=== PATIENT | female | born 1995 | race Caucasian/White ===

== ENCOUNTER 2017-06-12 18:42 | Inpatient (IN) | payer OTHER, MEDICAID ==
[~2017-06-12] VITALS: Ht 154.9 cm; Wt 55.5 kg
--- NOTE | ~2017-06-12 | PROC ---
[address] [address] PROCEDURE REPORT Name: SAILAJA FREITAS Room: [address] IN .R.#: [id number] Admission: 06/12/17 Attend Phys: Jean Paul Alonso MD Discharge: Date of : 89 Report #: [id number] THIS REPORT FOR: //name// For GI report, please see the Provation report in Perceptive 7 content. By: 1441Medical Records Staff FERMÍN /LETTY
[2017-06-12 19:00] VITALS: BP 110/55
[2017-06-12] MEDS ORDERED: PROTONIX40 M1 PO (19:03)
[2017-06-12] MEDS ORDERED: CELEXA40 MG PO (19:03)
[2017-06-12] MEDS ORDERED: TRI FEMYNOR 281 EACH PO (19:04)
[2017-06-12] MEDS ORDERED: BENADRYL25 MG PO (19:04)
[2017-06-12 19:52] LABS: ABSOLUTE LYMPHOCYTES 2.1 thou/uL (0.8-5.3); ABSOLUTE MONOCYTES 0.7 thou/uL (0.0-1.2); ABSOLUTE NEUTROPHILS 5.2 thou/uL (1.6-8.1); BASOPHILS 0.4 %; EOSINOPHILS 0.2 %; HEMATOCRIT 37.5 % (37.0-47.0); HEMOGLOBIN 12.9 gm/dL (12.0-15.0); LYMPHOCYTES 25.8 %; MCH 30.6 pg (26.0-34.0); MCHC 34.5 g/dL (28.0-37.0); MCV 88.6 fL (80.0-100.0); MONOCYTES 8.9 %; NUCLEATED RBCS 0 /100WBC; PLATELET COUNT* 138 thou/uL (150-400); POLYS 64.7 %; RBC 4.23 mil/uL (4.20-5.00); RDW-CV 12.7 % (10.5-14.5)
[2017-06-12 20:07] LABS: ANION GAP 8 mmol/L (7-16); BUN 11 mg/dL (7-18); CALCIUM 8.9 mg/dL (8.5-10.1); CHLORIDE 104 mmol/L (98-107); CO2 28 mmol/L (21-32); CREATININE 0.6 mg/dL (0.6-1.3); GLUCOSE 93 mg/dL (70-99); POTASSIUM 3.8 mmol/L (3.5-5.1); SODIUM 140 mmol/L (136-145)
[2017-06-12 20:10] LABS: URINE BILIRUBIN NEGATIVE (Negative); URINE BLOOD NEGATIVE (Negative); URINE CLARITY CLEAR; URINE COLOR YELLOW; URINE GLUCOSE-RANDOM NEGATIVE (Negative); URINE KETONES NEGATIVE (Negative); URINE LEUKOCYTES-REFLEX NEGATIVE (Negative); URINE NITRITE-REFLEX NEGATIVE (Negative); URINE PROTEIN NEGATIVE (Negative); URINE SPECIFIC GRAVITY <= 1.005 (1.005-1.030); URINE UROBILINOGEN 0.2 E.U./dl (0.2-1.0)
[2017-06-12 20:12] LABS: ALBUMIN 3.7 g/dL (3.4-5.0); ALKALINE PHOSPHATASE 115 U/L (46-116); SGOT 490 U/L (15-37); SGPT 494 U/L (30-65); TOTAL BILIRUBIN 0.4 mg/dL (<0.1-1.0); TOTAL PROTEIN 7.1 g/dL (6.4-8.2)
[2017-06-12 20:33] LABS: LIPASE > 30000 U/L (73-393)
[2017-06-12 23:24] VITALS: BP 98/58
[2017-06-12 23:35] VITALS: BP 94/52
[2017-06-13 09:56] VITALS: BP 95/54
[2017-06-13 11:14] LABS: AMP/METHAMP Negative (Negative); BARBITURATES Negative (Negative); BENZODIAZEPINES Negative (Negative); COCAINE Negative (Negative); METHADONE Negative (Negative); OPIATES Negative (Negative); PCP Negative (Negative); THC Negative (Negative)
[2017-06-13 15:50] LABS: ABSOLUTE MONOCYTES 0.4 thou/uL (0.0-1.2); ABSOLUTE NEUTROPHILS 3.4 thou/uL (1.6-8.1); BASOPHILS 0.6 %; EOSINOPHILS 0.8 %; HEMATOCRIT 38.5 % (37.0-47.0); LYMPHOCYTES 34.6 %; MCH 30.2 pg (26.0-34.0); MCHC 33.7 g/dL (28.0-37.0); MCV 89.7 fL (80.0-100.0); NUCLEATED RBCS 0 /100WBC; PLATELET COUNT* 131 thou/uL (150-400); RBC 4.29 mil/uL (4.20-5.00); RDW-CV 12.7 % (10.5-14.5); WBC 5.9 thou/uL (4.0-11.0)
[2017-06-13 16:11] VITALS: BP 127/73
[2017-06-13 16:28] LABS: PROTIME 10.2 Seconds (9.20-11.50)
[2017-06-13 20:00] VITALS: BP 101/61
[2017-06-14 04:05] LABS: ABSOLUTE EOSINOPHILS 0.1 thou/uL (0.0-0.7); ABSOLUTE LYMPHOCYTES 2.1 thou/uL (0.8-5.3); ABSOLUTE MONOCYTES 0.4 thou/uL (0.0-1.2); ABSOLUTE NEUTROPHILS 2.2 thou/uL (1.6-8.1); BASOPHILS 0.3 %; EOSINOPHILS 1.5 %; HEMATOCRIT 33.2 % (37.0-47.0); HEMOGLOBIN 11.3 gm/dL (12.0-15.0); LYMPHOCYTES 44.4 %; MCH 30.8 pg (26.0-34.0); MCHC 34.2 g/dL (28.0-37.0); MCV 90.1 fL (80.0-100.0); MONOCYTES 8.5 %; MPV 9.1 fl. (7.2-11.1); NUCLEATED RBCS 0 /100WBC; PLATELET COUNT* 104 thou/uL (150-400); POLYS 45.3 %; RBC 3.69 mil/uL (4.20-5.00); RDW-CV 12.8 % (10.5-14.5); WBC 4.8 thou/uL (4.0-11.0)
[2017-06-14 04:34] LABS: CALCIUM 7.9 mg/dL (8.5-10.1); CREATININE 0.7 mg/dL (0.6-1.3); POTASSIUM 3.9 mmol/L (3.5-5.1); TOTAL BILIRUBIN 0.3 mg/dL (<0.1-1.0); TOTAL PROTEIN 5.5 g/dL (6.4-8.2)
[2017-06-14 09:51] VITALS: BP 102/60
[2017-06-14 16:30] VITALS: BP 102/60
[2017-06-14 21:10] VITALS: BP 120/70
[2017-06-15] VITALS (7 sets, daily range): BP systolic 102–117; BP diastolic 56–73
[2017-06-15 03:58] LABS: HEMATOCRIT 38.3 % (37.0-47.0); HEMOGLOBIN 12.9 gm/dL (12.0-15.0); MCH 30.2 pg (26.0-34.0); MCHC 33.6 g/dL (28.0-37.0); MPV 8.9 fl. (7.2-11.1); NUCLEATED RBCS 0 /100WBC; PLATELET COUNT* 142 thou/uL (150-400); RBC 4.25 mil/uL (4.20-5.00); RDW-CV 12.4 % (10.5-14.5); WBC 10.5 thou/uL (4.0-11.0)
[2017-06-15 04:26] LABS: ALBUMIN 3.6 g/dL (3.4-5.0); CALCIUM 8.4 mg/dL (8.5-10.1); CREATININE 0.7 mg/dL (0.6-1.3); POTASSIUM 4.5 mmol/L (3.5-5.1); TOTAL BILIRUBIN 0.5 mg/dL (<0.1-1.0)
[2017-06-15 06:12] LABS: ABSOLUTE LYMPHOCYTES 1.3 thou/uL (0.8-5.3); ABSOLUTE MONOCYTES 0.2 thou/uL (0.0-1.2); PLATELET ESTIMATE DECREASED
[2017-06-15 06:13] LABS: ANISOCYTOSIS Occasional
[2017-06-16 03:30] VITALS: BP 102/59
[2017-06-16 04:41] LABS: HEMATOCRIT 30.9 % (37.0-47.0); MCH 30.7 pg (26.0-34.0); MCHC 34.3 g/dL (28.0-37.0); MCV 89.5 fL (80.0-100.0); MPV 9.4 fl. (7.2-11.1); RBC 3.45 mil/uL (4.20-5.00); RDW-CV 12.4 % (10.5-14.5); WBC 5.8 thou/uL (4.0-11.0)
[2017-06-16 04:45] LABS: HEMOGLOBIN 10.6 gm/dL (12.0-15.0)
[2017-06-16 05:05] LABS: CALCIUM 8.1 mg/dL (8.5-10.1); CREATININE 0.6 mg/dL (0.6-1.3); POTASSIUM 3.8 mmol/L (3.5-5.1); TOTAL BILIRUBIN 0.3 mg/dL (<0.1-1.0); TOTAL PROTEIN 5.7 g/dL (6.4-8.2)
[2017-06-16 07:45] VITALS: BP 101/61; BP 97/63
[2017-06-16 15:30] VITALS: BP 101/61
[2017-06-16 21:05] VITALS: BP 106/62
[2017-06-17 00:33] VITALS: BP 97/58
[2017-06-17 04:34] LABS: HEMATOCRIT 32.5 % (37.0-47.0); HEMOGLOBIN 10.9 gm/dL (12.0-15.0); MCH 30.4 pg (26.0-34.0); MCHC 33.5 g/dL (28.0-37.0); MCV 90.6 fL (80.0-100.0); MPV 9.6 fl. (7.2-11.1); RBC 3.58 mil/uL (4.20-5.00); RDW-CV 12.7 % (10.5-14.5)
[2017-06-17 04:57] LABS: ALBUMIN 2.8 g/dL (3.4-5.0); CALCIUM 8.1 mg/dL (8.5-10.1); CREATININE 0.7 mg/dL (0.6-1.3); MAGNESIUM 1.9 mg/dL (1.8-2.4); POTASSIUM 3.9 mmol/L (3.5-5.1); TOTAL BILIRUBIN 0.1 mg/dL (<0.1-1.0); TOTAL PROTEIN 5.4 g/dL (6.4-8.2)
[2017-06-17 08:00] VITALS: BP 106/66
[2017-06-17] MEDS ORDERED: PERCOCET PO (09:42)
[2017-06-17 09:51] VITALS: BP 106/66
[2017-06-17 15:37] VITALS: BP 106/66
--- NOTE | 2017-07-01 15:05 | CON ---
[address] [address] CONSULTATION Name: ROBERT FREITASJARET Carreno Room: [address] IN M.R.#: [id number] Admission: 06/12/17 Attend Phys: Jean Paul Alonso MD Discharge: 06/17/17 Date of : 94 Report #: [id number] THIS REPORT FOR: //name// CC: Dr. Brandyn Srivastava in [place], [place] Jean Paul Palmer DICTATED BY: Subha Palmer [facility] DATE OF SERVICE: 06/13/2017 Please note at the time of this dictation, the patient was seen and physically diagnosed by myself. REASON FOR CONSULTATION: Abdominal pain and nausea. HISTORY OF PRESENT ILLNESS: This is a 21-year-old female who presented to the Emergency Room after being instructed by myself regarding her abdominal pain and nausea. The patient was recently seen in our office the end of May for her hepatitis C for treatment. At that time, the patient was seen, she did no mention of any abdominal pain that she was having and was not having any abdominal pain at the time that she was seen. Apparently, she has been having this abdominal pain and nausea since 12/2016 and then over the last 2 months, it became apparently worse and that is when she sought out treatment and found out that she had hepatitis C. She felt that all of her pain was related to her hepatitis C and she was instructed that has not had any bearing. She had an ultrasound done at [place] that was done on 05/20/2017 that showed cholelithiasis without any evidence of acute cholecystitis and no ductal dilatation was noted at that time. After her office visit and further labs were drawn to see what genotype and viral load she had, she began having acute abdominal discomfort prompting her to go to the [address] in [place] where she underwent a CT scan that showed no gallstones and everything was in normal limits with no ductal dilatation and her pancreas was also noted to be normal at that time. However, at that time, her blood work revealed total bilirubin to be 1.7, alkaline phosphatase was 118, ALT was 548 and AST was 385, which was noted earlier prior to her being seen in our office. Her labs were fairly normal except for her ALT was 93 with the rest of her labs being normal for her liver. The patient then, based off of those findings, was instructed that she needed to have an MRCP done, which she had done at [facility]. That test was done on 06/07/2017 that showed no evidence of bile duct dilatation or choledocholithiasis and that the MRCP was unremarkable. It mentioned that the pancreatic duct was normal in thickness and diameter and that the pancreas was normal in size and configuration at that time. After talking with the patient last evening and she was wanting pain medication, she agreed to come to the hospital to be admitted to get this abdominal [place] [address] CONSULTATION Name: SAILAJA FREITAS Room: [address] IN M.R.#: [id number] Admission: 06/12/17 Attend Phys: Jean Paul Alonso MD Discharge: 06/17/17 Date of : 94 Report #: [id number] ALLERGIES: No known drug allergies. MEDICATIONS: From home include control pills, Celexa, Protonix, Benadryl. PAST MEDICAL HISTORY: Hepatitis C. She is a genotype 3a. PAST SURGICAL HISTORY: . FAMILY HISTORY: Noncontributory. SOCIAL HISTORY: Does drink alcohol socially on occasion. Denies any tobacco or illegal drug use at this time. REVIEW OF SYSTEMS: Twelve-point review of systems is essentially negative except what is mentioned in the HPI. PHYSICAL EXAMINATION: VITAL SIGNS: 36.8, pulse 61, respirations 12, blood pressure 95/54. HEART: Regular rate and rhythm. LUNGS: Clear. ABDOMEN: Soft, positive bowel sounds in all 4 quadrants with tenderness noted in the mid epigastric area. LABORATORY DATA: Hemoglobin is 12.9, hematocrit 37.5, white count is 8, and platelets are 138. Sodium 140, potassium 3.8, chloride 104, CO2 28, BUN is 11, creatinine 0.6, GFR is 125 and glucose is 93. Total bilirubin is 0.4, alkaline phosphatase 115, ALT 494, AST is 490, lipase shows to be greater than 30,000. CT of the abdomen and pelvis shows 1-2 calculi noted in the gallbladder with cholelithiasis noted, mild splenomegaly, but no pancreatic stranding or inflammation noted. Urine drug screen was also negative. IMPRESSION: 1. Abdominal pain. 2. Elevated LFTs. 3. Elevated lipase. 4. Thrombocytopenia. 5. Hepatitis C, newly diagnosed. PLAN: 1. We will await hepatobiliary scan. 2. Normal saline 250 mL an hour. 3. CMP and lipase in the a.m. 4. Diet as tolerated after testing has been performed. 5. Discussed case with surgery who is on board with ultrasound, CT and MRCP results done outside the facility placed on the front [place] [address] CONSULTATION Name: SAILAJA FREITAS Room: [address] IN [facility]#: [id number] Admission: 06/12/17 Attend Phys: Jean Paul Alnoso MD Discharge: 06/17/17 Date of : 94 Report #: [id number] recommendations to occur once the hepatobiliary scan has been evaluated. Thank you for allowing us to participate in this patient's care. Please do not hesitate to call with any questions in regard to this consult. <ELECTRONICALLY SIGNED> By: Ronlado Vazquez MD 07/01/17 1505 1219 1943Ronaldo Vazquez MD /nt
--- NOTE | 2017-07-01 15:05 | CON ---
[address] [address] CONSULTATION Name: SAILAJA FREITAS Room: [address] IN M.R.#: [id number] Admission: 06/12/17 Attend Phys: Jean Paul Alonso MD Discharge: 06/17/17 Date of : 94 Report #: [id number] THIS REPORT FOR: //name// CC: Jean Paul Palmer DATE OF SERVICE: 06/13/2017 ADDENDUM TO CONSULTATION CONSULTATION NUMBER: [id number]. I have personally seen and examined the patient and reviewed labs and imaging. The patient with elevated liver enzymes and lipase of 30,000; who presents with abdominal pain. She had a CT of abdomen and pelvis, which reveals mild splenomegaly and cholelithiasis. She has had a HIDA scan, which is pending results. Her elevation of bilirubin and transaminases in the setting of pancreatitis suggest gallstone pancreatitis. We will hydrate the patient and get over her pancreatitis. She would need a laparoscopic cholecystectomy with IOC. <ELECTRONICALLY SIGNED> By: Ronaldo Vazquez MD 07/01/17 1505 1700 2105Ronaldo Vazquez MD /nt
--- NOTE | 2017-07-02 10:58 | OP ---
[address] [address] OPERATIVE REPORT Name: SAILAJA FREITAS Room: [address] IN M.R.#: [id number] Admission: 06/12/17 Attend Phys: Jean Paul Alonso MD Discharge: 06/17/17 Date of : 94 Report #: [id number] THIS REPORT FOR: //name// CC: Jean Paul Elizabethb DICTATED BY: Chava Cifuentes DO DATE OF SERVICE: 06/14/2017 PREOPERATIVE DIAGNOSIS: Cholecystitis. POSTOPERATIVE DIAGNOSES: Cholecystitis and choledocholithiasis. SURGEON: Taco Benites DO ASSISTANTS: Chava Cifuentes, PGY-2 and Lauren Lacey, PGY-5 and Steph Thorne, MS3. OPERATION PERFORMED: Laparoscopic cholecystectomy with intraoperative cholangiogram and liver biopsy. ANESTHESIA: GET. ESTIMATED BLOOD LOSS: 30 mL. SPECIMEN REMOVED: Gallbladder and liver biopsy x 4. COMPLICATIONS: None. INDICATIONS: The patient is a 21-year-old female that presented as a direct admission from for acute right upper quadrant pain and epigastric pain. On presentation, the patient had elevation of lipase greater than 30,000 and elevated AST and ALT. The patient had recent history of diagnosis of hepatitis C. CT performed showed a contracted gallbladder with 1-2 small calculi in the fundus without any ductal dilatation. HIDA was performed which showed nonvisualization of the gallbladder and opacification of the common and cystic ducts. These findings were discussed with the patient and she was consented for laparoscopic cholecystectomy with intraoperative cholangiogram as well as a liver biopsy. DESCRIPTION OF PROCEDURE: After informed proper consent was obtained, the patient was brought to the operating room and placed on the table in supine position. SCDs were applied. General anesthesia was administered without difficulty. The patient was prepped and draped in the usual sterile fashion. A surgical pause was held to confirm correct patient and procedure. [address] [place] [address] OPERATIVE REPORT Name: SAILAJA FREITAS Room: [address] IN [facility]#: [id number] Admission: 06/12/17 Attend Phys: Jean Paul Alonso MD Discharge: 06/17/17 Date of : 94 Report #: [id number] vertical incision was made inferior to the umbilicus with a #15 blade. Dissection was carried down to the fascia using Bovie electrocautery. The fascia was grasped with 2 Kochers and elevated and opened with Bovie electrocautery. A Robyn clamp was used to enter the peritoneum bluntly. A finger was introduced into the peritoneum to sweep and check for any adhesions. At this time, 0 [address] was used to place a iqqfql-xm-tairw on the superior and inferior portions of the fascial incision. The 5 mm Cyndi trocar was introduced and the balloon inflated. Insufflation was established. After deflation, the camera was introduced and exploration of the abdomen was undertaken. Additional 10 mm port was placed in the epigastrium and two 5 mm ports placed in the right upper quadrant under direct visualization. The gallbladder was visualized and elevated with a blunt grasper. The peritoneum overlying the Christine's pouch and distal cystic duct were dissected free using Bovie electrocautery. The cystic duct was isolated using a combination of Bovie electrocautery and blunt dissection with a Maryland dissector. A window was made behind the cystic duct. The cystic artery was also isolated in this fashion and clipped. A clip was placed at the distal aspect of the cystic duct and using laparoscopic scissors, the cystic duct was opened. A 14-gauge angiocatheter was introduced through the abdomen in the right upper quadrant inferior to the costal margin and through this catheter the cholangiogram catheter was introduced into the abdomen. The [place] dissector was used to guide this into the incised cystic duct. Once the catheter was in the cystic duct, it was secured with a single clip. At this time, a laparoscopic cholangiogram was performed. A solitary stone was noted in the distal common bile duct. Saline was flushed repeatedly to attempt to dislodge the stone. Glucagon was administered to relax the sphincter of Oddi and again multiple attempts at flushing the stone out were undertaken unsuccessfully. The fluoroscopic images were reviewed at this point and the presence of a stone confirmed. The clip was removed from the catheter and the catheter removed. Three additional clips were placed on the cystic duct and the incision was completed to remove the cystic duct. The artery was also cut at this time. Bovie electrocautery was then used to dissect the gallbladder from the liver bed. Prior to complete removal of the gallbladder, the liver bed was inspected for hemostasis and achieved using Bovie electrocautery. The clips were noted to be in adequate position with no leak of bile or blood noted. The suction opticianry teacher was used to suction any blood and bile and irrigated until clean. The gallbladder was placed in a laparoscopic EndoCatch bag placed out of the field. At this point, liver biopsy tool was introduced through the previous Angiocath incision for individual core biopsies were obtained. Bovie electrocautery was used to achieve hemostasis at each of these 4 biopsy sites. The right upper quadrant was again irrigated and suctioned. All laparoscopic ports were removed under direct visualization without any bleeding noted. The abdomen was allowed to desufflate. The gallbladder was removed via the EndoCatch bag through the umbilical port. The previous fascial incisions were elevated and an additional 2 xwppab-sj-iidnd stitches were placed in the fascia in a gvatqc-qy-tfolx fashion with 0 Vicryl. A 15-English RIK[place] [address] OPERATIVE REPORT Name: SAILAJA FREITAS Room: [address]#: [id number] Admission: 06/12/17 Attend Phys: Jean Paul Alonso MD Discharge: 06/17/17 Date of : 94 Report #: [id number] into the right upper quadrant and secured with a 2-0 nylon. All incisions were closed with 4-0 Monocryl. The wounds were cleansed and dressed with Mastisol, Steri-Strips, and Tegaderm. Pressure dressings were placed over top. All surgical counts were correct at the close of the case. The patient tolerated the procedure well and was transferred to the PACU in stable condition. <ELECTRONICALLY SIGNED> By: Taco Benites DO 07/02/17 1058 22 [id number] Benites DO /nt
--- NOTE | 2017-07-05 16:01 | S ---
[place] [address] SURGICAL PATH RPT PROCEDURE Name: KITTY FREITAS Room: [address] IN M.R.#: [id number] Admission: 06/12/17 Date of : 89 Discharge: 06/17/17 Report #: [id number] Path Case #: [id number] PATHOLOGY REPORT COLLECTION DATE: 06/14/2017 RECEIVED DATE: 06/17/2017 SUBMITTING PHYS: Dr. Taco Benites OTHER PHYS: Dr. Jean Paul Palmer SWORD SWALLOWER ADDENDUM REPORT (Order Date: 07/05/2017 15:33) ADDENDUM COMMENT: The specimen stain trichrome and elastic does not reveal any evidence of cirrhosis. The special stain PAS and PAS-D do not reveal any evidence of inclusions. The special stain iron is also negative. This addendum is for evaluation of special stains. (SHA:; 07/05/2017) Professional services performed under supervision of [facility] Consumer Marketing Analyst at [address] [place] [address]. Technical services performed by [facility] under supervision of a [facility] Consumer Marketing Analyst at [address] [place] [address], [place] [address]. ELECTRONICALLY SIGNED BY: Wyatt Ernandez M.D. DATE/TIME:07/05/2017 15:55 ADDENDUM REPORT (Order Date: 06/21/2017 00:00) ADDENDUM COMMENT: Please see next page for scanned image of report submitted by [facility]. (KATERINA:mirna; d/t: 06/25/2017) ELECTRONICALLY SIGNED BY: Wyatt Ernandez M.D. DATE/TIME:06/26/2017 14:12 SPECIMEN(S) RECEIVED: A.Gallbladder with contents B.Liver biopsy * * * * * * * * * * * * FINAL DIAGNOSIS: A. Gallbladder "gallbladder and contents, cholecystectomy": - Chronic cholecystitis with cholelithiasis. B. Liver "liver biopsy": - The liver biopsy will be sent to the [facility] and once those results are available an additional report will follow. COMMENT: [place] [address] SURGICAL PATH RPT PROCEDURE Name: KITTY FREITAS Room: [address] IN [facility]#: [id number] Admission: 06/12/17 Date of : 94 Discharge: 06/17/17 Report #: [id number] Path Case #: [id number] A liver panel was also ordered. (KATERINA:addy; 06/18/2017) PATHOLOGIST: Wyatt Ernandez M.D. REPORT ELECTRONICALLY SIGNED BY: Wyatt Ernandez M.D. DATE/TIME: 06/18/2017 15:15 * * * * * * * * * * * * GROSS PATHOLOGY: A. Received in formalin labeled "Kitty Freitas, gallbladder with contents" and consists of an emerald green and glistening intact 9.5 cm in length by 2.7 cm in diameter gallbladder. The margin is inked. The lumen contains approximately 10 ML's of thick green bile and a few nodular yellow calculi ranging in size from 0.1 cm-0.3 cm, and aggregating to 0.5 x 0.4 x 0.3 cm. The wall averages 0.2 cm thick. The mucosa is velvety and green. Change Coordinator sections are submitted as a 1. B. Received in formalin labeled "Roll, Kitty, liver biopsy" and consists of 6 blanca tissue cores ranging in length from 0.5 cm-1.9 cm and each with uniform diameter of less than 0.1 cm. They are entirely submitted as B1. (LISSETH; 06/17/2017) CLINICAL HISTORY: Cholecystitis INITIAL CPT CODE(S): A; 15635 B; 50383, 68356, 76017, 05666, [address]5627, 07898 Professional services performed by [facility] at [facility] , [place] [address]. Technical services performed by [facility] at [address] [place] [address], [address], [place] [address]. [facility] [address] [place] [address] PHONE: [phone] DIRECTOR: Vitor Byrd M.D. * * * END OF REPORT * * *
== END 2017-06-17 14:00 | disposition home or self-care (01) | DRG 417 ==
LOC: M.ERS 18:42 → M.ORTHSURG 22:15 → M.TBA-ER 22:15 → M.ORTHSURG 23:32
PROVIDERS: Internal Medicine; Nurse Practitioner Adult Health; Nurse Practitioner Family; Surgery; ADMIT Internal Medicine
DX: K80.64 Calculus of gallbladder and bile duct with chronic cholecystitis without obstruction (principal); K85.10 Biliary acute pancreatitis without necrosis or infection; B19.20 Unspecified viral hepatitis C without hepatic coma; D69.6 Thrombocytopenia, unspecified; R16.1 Splenomegaly, not elsewhere classified; F17.210 Nicotine dependence, cigarettes, uncomplicated; Z98.891 History of uterine scar from previous surgery; Z79.899 Other long term (current) drug therapy; Z80.0 Family history of malignant neoplasm of digestive organs